=== PATIENT | male | born 1950 | race Two or more races ===

== ENCOUNTER → 2021-09-04 | Emergency (ER) | payer OTHER ==
[~2021-09-04] VITALS: Ht 170.2 cm; Wt 74.8 kg
[~2021-09-04] MED LIST: ASPIR 8181 MG PO; LISINOPRIL10 MG PO; METOPROLOL SUCC25 MG PO; SIMVASTATIN5 MG PO; SYNTHROID125 MCG PO; TENCON TABLET1 TAB PO
== END | disposition home or self-care (01) ==
LOC: ER 08:18
DX: M10.9 Gout, unspecified (principal); M79.674 Pain in right toe(s); I10 Essential (primary) hypertension